=== PATIENT | female | born 1945 | race Caucasian/White ===

== ENCOUNTER 2017-12-31 14:34 | Outpatient (REF) | payer MEDICARE, BC, SELFPAY ==
[2017-12-31 19:03] LABS: HCT 42.3 % (36.0-46.0); HGB 13.9 g/dL (12.0-15.5); Mean Corp. HGB Concentration 32.9 g/dL (32.0-36.0); Mean Corpuscular Hemoglobin 31.8 pg (27.0-33.0); Mean Corpuscular Volume 96.8 fL (80-95); Mean Platelet Volume 10.8 fL (8.0-11.0); Platelet Count 284 x1000/uL (130-400); RBC 4.37 m/cumm (4.00-5.20); RBC Distribution Width 12.5 % (11.7-14.6); White Blood Cell Count 6.32 k/cumm (4.4-10.8)
[2017-12-31 19:26] LABS: ALT 41 U/L (12-78); AST 28 U/L (15-37); Alkaline Phosphatase 76 U/L (46-116); Anion Gap 7.8 mmol/L (3-11); BUN 13 mg/dL (7-18); Bilirubin, Total 0.6 mg/dL (0.2-1.0); CO2 28.2 mmol/L (21.0-32.0); CREATININE 0.72 mg/dL (0.55-1.02); Calcium 9.6 mg/dL (8.5-10.1); Chloride 102 mmol/L (98-107); Glucose 87 mg/dL (70-100); Potassium 4.3 mmol/L (3.5-5.1); Sodium 138 mmol/L (136-145); TSH 1.04 uIU/mL (0.358-3.74)
[2017-12-31 20:04] LABS: Vitamin B12 609 pg/mL (193-986)
== END 2017-12-31 14:35 ==
LOC: NCHCN 14:34
PROVIDERS: PCP Physician Assistant; Visit Provider Internal Medicine
DX: I10 Essential (primary) hypertension (principal); R73.09 Other abnormal glucose; D05.10 Intraductal carcinoma in situ of unspecified breast; M17.9 Osteoarthritis of knee, unspecified
CPT/HCPCS: 80053; 85027; 82607; 84443

== ENCOUNTER 2018-06-24 20:10 | Outpatient (REF) | payer MEDICARE, BC, SELFPAY ==
[2018-06-24 20:41] LABS: Uric Acid 3.2 mg/dL (2.6-6.0)
[2018-06-24 21:16] LABS: ESR 18 MM/HR (0-30)
[2018-06-25 16:14] LABS: CRP, High Sensitivity 3.95 mg/L
== END 2018-06-24 20:30 ==
LOC: NCHCN 20:10
PROVIDERS: PCP Physician Assistant; Visit Provider Internal Medicine
DX: M10.9 Gout, unspecified (principal)
CPT/HCPCS: 85652; 86141; 84550

== ENCOUNTER 2019-01-06 15:17 | Outpatient (REF) | payer MEDICARE, BC, SELFPAY ==
[2019-01-06 19:24] LABS: Anion Gap 10.2 mmol/L (3-11); BUN 11 mg/dL (7-18); CO2 26.8 mmol/L (21.0-32.0); CREATININE 0.74 mg/dL (0.55-1.02); Chloride 104 mmol/L (98-107); Glucose 98 mg/dL (70-100); Potassium 4.1 mmol/L (3.5-5.1); Sodium 141 mmol/L (136-145)
== END 2019-01-06 15:37 ==
LOC: NCHCN 15:17
PROVIDERS: PCP Physician Assistant; Visit Provider Internal Medicine
DX: I10 Essential (primary) hypertension (principal); G62.9 Polyneuropathy, unspecified
CPT/HCPCS: 80048

== ENCOUNTER 2019-10-31 14:37 | Outpatient (REF) | payer MEDICARE, BC, SELFPAY ==
[2019-10-31 19:34] LABS: Hemoglobin A1C 6.1 % (3.8-5.6)
== END 2019-10-31 14:57 ==
LOC: NCHCN 14:37
PROVIDERS: PCP Physician Assistant; Visit Provider Nurse Practitioner Family
DX: R73.03 Prediabetes (principal)
CPT/HCPCS: 83036

== ENCOUNTER 2020-08-01 13:32 | Outpatient (REF) | payer MEDICARE, BC, SELFPAY ==
[2020-08-01 15:46] LABS: HCT 41.5 % (36.0-46.0); HGB 13.5 g/dL (11.2-15.7); MCH 31.8 pg (27.0-33.0); MCHC 32.5 % (32.0-36.0); MCV 97.6 fL (80-95); MPV 10.5 fL (8.0-11.0); Platelet Count 255 10^3/uL (130-400); RBC 4.25 10^6/uL (3.93-5.22); RDW 12.3 % (11.7-14.6); RDW-SD 44.3 fL
[2020-08-01 16:13] LABS: Anion Gap 9.2 mmol/L (3-11); BUN 13 mg/dL (7-18); CO2 28.8 mmol/L (21.0-32.0); CREATININE 0.6 mg/dL (0.55-1.02); Calcium 9.2 mg/dL (8.5-10.1); Chloride 103 mmol/L (98-107); Glucose 128 mg/dL (74-106); Potassium 4.3 mmol/L (3.5-5.1); Sodium 141 mmol/L (136-145); TSH 0.88 uIU/mL (0.36-3.74)
== END 2020-08-01 13:33 | disposition home or self-care (01) ==
LOC: NCHCN 13:32
PROVIDERS: PCP Physician Assistant; Visit Provider Internal Medicine
DX: I10 Essential (primary) hypertension (principal); F32.9 Major depressive disorder, single episode, unspecified; K30 Functional dyspepsia; R49.0 Dysphonia
CPT/HCPCS: 80048; 85027; 84443

== ENCOUNTER 2021-07-30 16:08 | Outpatient (REF) | payer MEDICARE, BC, SELFPAY ==
[2021-07-30 19:35] LABS: HGB 13.4 g/dL (11.2-15.7); MCH 30.9 pg (27.0-33.0); MCHC 31.9 % (32.0-36.0); MPV 10.3 fL (8.0-11.0); Platelet Count 281 10^3/uL (130-400); RBC 4.33 10^6/uL (3.93-5.22); RDW 12.3 % (11.7-14.6); RDW-SD 44.4 fL; WBC 5.07 10^3/uL (4.4-10.8)
[2021-07-30 19:59] LABS: ALT 40 U/L (14-59); AST 24 U/L (15-37); Alkaline Phosphatase 87 U/L (46-116); BUN 13 mg/dL (7-18); Bilirubin, Total 0.7 mg/dL (0.2-1.0); CREATININE 0.7 mg/dL (0.55-1.02); Calculated LDL 103 mg/dL (<100); Chloride 102 mmol/L (98-107); Cholesterol 177 mg/dL (<200); Glucose 130 mg/dL (74-106); HDL Cholesterol 51 mg/dL (40-60); Potassium 3.6 mmol/L (3.5-5.1); Sodium 139 mmol/L (136-145); Total Protein 6.9 g/dL (6.4-8.2); Triglyceride 117 mg/dL (<150)
[2021-07-30 20:01] LABS: Hemoglobin A1C 6.1 % (<5.7)
== END 2021-07-30 16:09 | disposition home or self-care (01) ==
LOC: NCHCN 16:08
PROVIDERS: PCP Physician Assistant; Visit Provider Internal Medicine
DX: K76.0 Fatty (change of) liver, not elsewhere classified (principal); R73.03 Prediabetes; E87.6 Hypokalemia
CPT/HCPCS: 80053; 80061; 85027; 83036

== ENCOUNTER 2022-10-23 18:24 | Outpatient (REF) | payer MEDICARE, BC, SELFPAY ==
[2022-10-23 21:12] LABS: HCT 41.3 % (36.0-46.0); HGB 13.5 g/dL (11.2-15.7); MCH 32.3 pg (27.0-33.0); MCHC 32.7 % (32.0-36.0); MCV 99 fL (80-95); MPV 10.3 fL (8.0-11.0); Platelet Count 289 10^3/uL (130-400); RBC 4.18 10^6/uL (3.93-5.22); RDW 12.1 % (11.7-14.6); RDW-SD 44.1 fL; WBC 6.52 10^3/uL (4.4-10.8)
[2022-10-23 21:31] LABS: Iron 52 ug/dL (50-170); Total Iron Binding Capacity 342 ug/dL (250-450); Transferrin Sat 15 % (15-50)
[2022-10-23 21:34] LABS: Hemoglobin A1C 5.8 % (<5.7)
[2022-10-23 21:52] LABS: Vitamin D 25 Total 26.2 ng/mL (30-100)
[2022-10-23 21:56] LABS: Anion Gap 6.6 mmol/L (3-11); BUN 17 mg/dL (7-18); CO2 31.4 mmol/L (21.0-32.0); CREATININE 0.8 mg/dL (0.55-1.02); Calcium 9.3 mg/dL (8.5-10.1); Chloride 103 mmol/L (98-107); Estimated GFR 75.37 (mL/min/1.73m2); Ferritin 32 ng/mL (8-252); Glucose 126 mg/dL (74-106); Potassium 4.2 mmol/L (3.5-5.1); Sodium 141 mmol/L (136-145); Vitamin B12 951 pg/mL (193-986)
== END 2022-10-23 18:25 | disposition home or self-care (01) ==
LOC: NCHCN 18:24
PROVIDERS: PCP Nurse Practitioner Family; Visit Provider Family Medicine
DX: N81.4 Uterovaginal prolapse, unspecified (principal); R73.03 Prediabetes; M85.80 Other specified disorders of bone density and structure, unspecified site; G62.9 Polyneuropathy, unspecified
CPT/HCPCS: 80048; 82306; 85027; 82607; 82728; 83036; 83540; 83550

== ENCOUNTER 2023-02-11 12:34 | Outpatient (REF) | payer MEDICARE, BC, SELFPAY ==
[2023-02-11 15:35] LABS: Abs Immature Grans 0.01 10^3/uL (0.0-0.06); Absolute Basophil Count 0.08 10^3/uL (0.0-0.2); Absolute Eosinophil Count 0.11 10^3/uL (0.0-0.7); Absolute Monocyte Count 0.77 10^3/uL (0.1-0.8); Absolute Neutrophil Count 3.51 10^3/uL (1.2-6.7); Basophils % 1.4; Eosinophils % 1.9; HCT 41.8 % (36.0-46.0); HGB 13.7 g/dL (11.2-15.7); Immature Grans % 0.2; Lymphocytes % 22.5; MCH 31.5 pg (27.0-33.0); MCHC 32.8 % (32.0-36.0); MCV 96 fL (80-95); MPV 10.6 fL (8.0-11.0); Monocytes % 13.3; Neutrophils % 60.7; Platelet Count 259 10^3/uL (130-400); RBC 4.35 10^6/uL (3.93-5.22); RDW 12.2 % (11.7-14.6); RDW-SD 43.7 fL; WBC 5.78 10^3/uL (4.4-10.8)
[2023-02-11 15:56] LABS: Anion Gap 4.8 mmol/L (3-11); BUN 16 mg/dL (7-18); CO2 30.2 mmol/L (21.0-32.0); CREATININE 0.7 mg/dL (0.55-1.02); Calcium 9.7 mg/dL (8.5-10.1); Chloride 102 mmol/L (98-107); Estimated GFR 88.47 (mL/min/1.73m2); Glucose 119 mg/dL (74-106); Potassium 4.1 mmol/L (3.5-5.1); Sodium 137 mmol/L (136-145); TSH (W/Ref FT4) 1.53 uIU/mL (0.36-3.74)
[2023-02-11 16:07] LABS: Hemoglobin A1C 6.1 % (<5.7)
== END 2023-02-11 12:35 | disposition home or self-care (01) ==
LOC: NCHCN 12:34
PROVIDERS: PCP Nurse Practitioner Family; Visit Provider Family Medicine
DX: R73.03 Prediabetes (principal); R27.0 Ataxia, unspecified; I10 Essential (primary) hypertension
CPT/HCPCS: 80048; 83036; 84443; 85025

== ENCOUNTER → 2023-03-04 00:51 | Outpatient (CLI) | payer MEDICARE, BC, SELFPAY ==
--- NOTE | 2023-03-04 | DI.MRI_ITS ---
Exam(s) MR BRAIN WO EXAM: MR BRAIN WO CLINICAL HISTORY: ATAXIA,R27.0 TECHNIQUE: Multiplanar multisequence MRI of the brain was performed. COMPARISON: No prior brain imaging exams available for comparison FINDINGS: CEREBRAL PARENCHYMA: There is no evidence of intracranial hemorrhage, mass effect, or shift of midline structures. There are no extra-axial fluid collections. Ventricles are not enlarged or shifted. There is no significant focal signal abnormality in the cerebellar hemispheres. There is some increa sed signal in both sides of the lachelle, nonhemorrhagic and not associated with restricted diffusion but probably related to chronic ischemic changes. No abnormal signal in the midbrain and thalami. Some mild bilateral small for FLAIR bright foci of signal abnormality are noted in the periventricular wh ite matter which are also not associated with hemorrhage, surrounding edema, nor abnormal signal on d iffusion-weighted imaging (DWI). PITUITARY GLAND: No mass nor parasellar abnormality. No obvious abnormality in the cavernous sinuses. FLOW VOIDS: The expected flow void are noted. No evidence of obvious aneurysm nor obvious vascular ma lformation. PARANASAL SINUSES: Frontal sinuses are not developed. Other paranasal sinuses are clear, as are the mastoid air cells. ORBITS: No obvious findings. IMPRESSION: No significant acute intracranial findings on this noninfused MRI scan of the brain. There is signal abnormality in both sides of the lachelle not associated with restricted diffusion but pr obably related to chronic ischemic change. There are few small sub cm bilateral foci of FLAIR bright signal abnormality in the periventricular w daniel matter which are not associated with hemorrhage, surrounding edema, nor restricted diffusion, an d are probably related to the chronic ischemic changes. DATA REPOSITORY:
== END ==
PROVIDERS: PCP Nurse Practitioner Family; Visit Provider Family Medicine
DX: R27.0 Ataxia, unspecified (principal)
CPT/HCPCS: 70551

== ENCOUNTER 2024-12-20 16:38 | Outpatient (REF) | payer MEDICARE, BC, SELFPAY ==
[2024-12-20 17:10] LABS: Hemoglobin A1C 5.5 % (<5.7)
[2024-12-20 17:39] LABS: ALT 61 U/L (14-59); AST 41 U/L (15-37); Albumin 3.9 g/dL (3.4-5.0); Alkaline Phosphatase 72 U/L (46-116); Anion Gap 8.6 mmol/L (3-11); BUN 14 mg/dL (7-18); Bilirubin, Total 0.8 mg/dL (0.2-1.0); CO2 28.4 mmol/L (21.0-32.0); Calcium 9.2 mg/dL (8.5-10.1); Chloride 104 mmol/L (98-107); Estimated GFR 90.68 (mL/min/1.73m2); Glucose 139 mg/dL (74-106); Potassium 4.0 mmol/L (3.5-5.1); Sodium 141 mmol/L (136-145); Total Protein 6.8 g/dL (6.4-8.2)
== END 2024-12-20 16:39 | disposition home or self-care (01) ==
LOC: NCHCN 16:38
PROVIDERS: PCP Nurse Practitioner Family; Visit Provider Family Medicine
DX: I10 Essential (primary) hypertension (principal); R73.03 Prediabetes
CPT/HCPCS: 80053; 83036

== ENCOUNTER 2024-12-28 02:15 | Outpatient (CLI) | payer MEDICARE, BC, SELFPAY ==
--- NOTE | 2024-12-28 | DI.DEXA_ITS ---
Exam(s) XR DEXA BONE DENSITY W/WO ANYA EXAM: XR DEXA BONE DENSITY W/WO ANYA CLINICAL HISTORY: POSTMENOPAUSAL, Z78.0 TECHNIQUE: [employer] C densitometer analysis of left hip, lumbar spine and left forearm. Lateral survey image of the thoracic and lumbar spine. COMPARISON: No exams were available for comparison FINDINGS: Lateral view of the thoracic and lumbar spine shows no evidence of compression fractures. Bone mineral density measurements of the lumbar spine correspond to a total T- score of -1.9, in the osteopenic range Bone mineral density measurements of the left hip correspond to a total T-score of -1.9, in the osteopenic range. The femoral neck T-score is -1.0. Theleft forearm bone mineral density measurements correspond to a T-score of the distal 3rd of -2.0, in the osteopenic range. IMPRESSION: Osteopenia of the spine, hip and forearm.
== END 2024-12-28 02:35 ==
LOC: DI 02:15
PROVIDERS: PCP Nurse Practitioner Family; Visit Provider Family Medicine
DX: Z13.820 Encounter for screening for osteoporosis (principal); Z78.0 Asymptomatic menopausal state; M85.89 Other specified disorders of bone density and structure, multiple sites
CPT/HCPCS: 77080

== ENCOUNTER 2025-01-26 13:24 | Outpatient (REF) | payer MEDICARE, BC, SELFPAY ==
[2025-01-26 20:57] LABS: ALT 42 U/L (14-59); AST 30 U/L (15-37); Albumin 4.0 g/dL (3.4-5.0); Alkaline Phosphatase 76 U/L (46-116); Anion Gap 6.2 mmol/L (3-11); BUN 12 mg/dL (7-18); Bilirubin, Total 0.6 mg/dL (0.2-1.0); CO2 31.8 mmol/L (21.0-32.0); Calcium 9.5 mg/dL (8.5-10.1); Chloride 103 mmol/L (98-107); Estimated GFR 87.37 (mL/min/1.73m2); Glucose 91 mg/dL (74-106); Potassium 3.9 mmol/L (3.5-5.1); Sodium 141 mmol/L (136-145); Total Protein 6.9 g/dL (6.4-8.2)
[2025-01-27 19:54] LABS: Hepatitis A Antibody IgM Negative (Negative); Hepatitis C Ab w Rflx HCV PCR Negative (Negative)
== END 2025-01-26 13:25 | disposition home or self-care (01) ==
LOC: NCHCN 13:24
PROVIDERS: PCP Nurse Practitioner Family; Visit Provider Family Medicine
DX: B17.9 Acute viral hepatitis, unspecified (principal); I10 Essential (primary) hypertension
CPT/HCPCS: 80053; 86704; 86709; 86803; 87340